=== PATIENT | male | born 1955 | race Caucasian/White ===

== ENCOUNTER 2019-05-24 00:34 | Inpatient (IN) | payer BC, SELFPAY ==
[2019-05-24 01:05] LABS: Mean Corpuscular Volume 95.5 fL (78.0-98.0)
[2019-05-24 01:06] LABS: INR-International Normal Ratio 1.2; PTT 26.2 SEC (22.9-36.1); Prothrombin Time 15.6 SEC (12.0-14.7)
[2019-05-24 01:15] LABS: Band 14 % (5-11); Hemoglobin 13.4 g/dL (14.0-18.0); Lymphocytes 5 % (21-51); MDiff Complete? YES; Mean Corpuscular HGB CONC 35.1 g/dL (32.0-36.0); Mean Corpuscular Hemoglobin 33.5 pg (27.0-31.0); Mean Platelet Volume 7.2 fL (7.4-10.4); Monocytes 4 % (0-10); Neutrophil 76 % (42-75); Platelet Count 205 thou/uL (130-400); Platelet Morphology Comment Appears Adequate; RBC Distribution Width 11.3 % (11.5-14.5); Red Blood Cell (RBC) Count 4.01 mill/uL (4.70-6.10)
[2019-05-24 01:19] LABS: ALT (SGPT) 44 U/L (8-55); AST (SGOT) 49 U/L (5-34); Albumin 3.7 g/dL (3.4-4.8); Alcohol 239 mg/dL (Less than 10); Alkaline Phosphatase 61 U/L (40-150); Anion Gap 14 mmol/L (10-20); BUN (Urea Nitrogen) 15 mg/dL (8.4-25.7); Bilirubin, Total 0.3 mg/dL (0.2-1.2); Calc. Creatinine Clearance 0 mL/min (70-130); Calcium 8.1 mg/dL (7.8-10.44); Carbon Dioxide 21 mmol/L (23-31); Chloride 105 mmol/L (98-107); Estimated GFR-MDRD Greater than 90; Globulin 2.3 g/dL (2.4-3.5); Glucose 151 mg/dL (80-115); Potassium 3.9 mmol/L (3.5-5.1); Sodium 136 mmol/L (136-145)
[2019-05-24] MEDS ORDERED: Dextrose 5% in Water 1,000 ML IV PRN (01:28)
[2019-05-24] MEDS ORDERED: Dextrose 50% Abboject 50 ML SYRINGE SLOW IVP PRN (01:28)
[2019-05-24] MEDS ORDERED: HumaLOG 300 UNITS/3 ML VIAL SC PRN (01:28)
[2019-05-24] MEDS ORDERED: Promethazine HCl 25 MG/ML VIAL IM PRN (01:32)
[2019-05-24] MEDS ORDERED: Ondansetron PF 4 MG/2 ML Vial IVP PRN (01:32)
[2019-05-24] MEDS ORDERED: diphenhydrAMINE 50 MG/ML VIAL IM PRN (01:32)
[2019-05-24] MEDS ORDERED: Naloxone HCl 0.4 mg/ml Vial IV PRN (01:32)
[2019-05-24] MEDS ORDERED: diphenhydrAMINE 50 MG/ML VIAL IVP PRN (01:32)
[2019-05-24] MEDS ORDERED: HYDROmorphone 10 mg/100 ml CADD IVPB PRN (01:32)
[2019-05-24] MEDS ORDERED: diphenhydrAMINE 25 MG CAP PO PRN (01:32)
[2019-05-24] MEDS ORDERED: Communication Order-Pharmacy FS SCH (01:45)
--- NOTE | 2019-05-24 01:55 | RAD ---
EXAM: Retrograde urethrogram HISTORY: Pelvic fracture with blood at the urethral meatus COMPARISON: Pelvic CT 05/24/2019 FINDINGS: Sterile contrast was instilled into the patient's penis. There is a small area of leakage o f the contrast from the membranous urethra. IMPRESSION: Small urethral injury of the membranous urethra.
[2019-05-24] MEDS ORDERED: Midazolam HCl 2 mg/2 ml Vial ONE (02:55)
[2019-05-24] MEDS ORDERED: Fentanyl 100 MCG/2 ML VIAL ONE (02:55)
[2019-05-24 03:06] LABS: #Eosinphils 0.1 thou/uL (0.0-0.7); #Lymphocytes 1.6 thou/uL (1.20-3.40); #Monocytes 1.7 thou/uL (0.11-0.59); #Neutrophils 17.8 thou/uL (1.40-6.50); %Basophils 0.2 % (0.0-1.0); %Eosinophils 0.3 % (0.0-10.0); %Lymphocytes 7.5 % (21.0-51.0); %Monocytes 7.8 % (0.0-10.0); %Neutrophils 84.3 % (42.0-75.0); Hemoglobin 12.8 g/dL (14.0-18.0); Mean Corpuscular HGB CONC 35.9 g/dL (32.0-36.0); Mean Corpuscular Hemoglobin 33.9 pg (27.0-31.0); Mean Corpuscular Volume 94.4 fL (78.0-98.0); Mean Platelet Volume 7.6 fL (7.4-10.4); Platelet Count 120 thou/uL (130-400); RBC Distribution Width 11.4 % (11.5-14.5); Red Blood Cell (RBC) Count 3.77 mill/uL (4.70-6.10); White Blood Cell (WBC) Count 21.2 thou/uL (4.8-10.8)
[2019-05-24 03:06] LABS: Actual Bicarbonate (HCO3a) 18.8 mEq/L (22-28); Analyzer IN Cardio ER; Base Excess (BEa) -9.6 mEq/L (-2.0 to +3.0); CO2 Tension 51.5 mmHg (35.0-45.0); Calcium, Ionized 1.11 mmol/L (1.12-1.30); Carboxyhemoglobin (COHb) 0.1 gm% (0.0-3.0); Hemoglobin (Hb) 13.1 g/dL (14.0-18.0); O2 Tension (PaO2) 324.4 mmHg (> 80.0); Potassium - ABG Lab 4.19 mmol/L (3.70-5.30)
[2019-05-24 03:13] LABS: ALV-art Gradient 324.225 (0-20); Puncture Site LRA; pH, Arterial 7.18 (7.35-7.45)
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
[2019-05-24 03:50] LABS: Bacteria/HPF None Seen HPF (None Seen); Bilirubin Negative (Negative); Blood, Urine 1+ (Negative); Clarity Clear (Clear); Glucose, Urine (Dipstick) Normal (Negative); Leukocyte Negative Leu/uL (Negative); Nitrite Negative (Negative); Protein, Urine (Dipstick) Negative (Neg-Trace); Squamous Epithelial 0-3 HPF (0-3); Urobilinogen Normal mg/dL (Less than 2); WBC/HPF 0-3 HPF (0-3)
[2019-05-24] MEDS: Sodium Chloride 0.9% 1,000 ML IV SCH ×3 (04:15→20:59)
[2019-05-24 04:18] VITALS: BMI 33.9
[2019-05-24 05:15] LABS: #Lymphocytes 0.8 thou/uL (1.20-3.40); #Monocytes 0.9 thou/uL (0.11-0.59); #Neutrophils 11.7 thou/uL (1.40-6.50); %Eosinophils 0.2 % (0.0-10.0); %Lymphocytes 5.7 % (21.0-51.0); %Monocytes 6.7 % (0.0-10.0); %Neutrophils 87.4 % (42.0-75.0); Hemoglobin 12.6 g/dL (14.0-18.0); Mean Corpuscular HGB CONC 35.4 g/dL (32.0-36.0); Mean Corpuscular Hemoglobin 33.8 pg (27.0-31.0); Mean Corpuscular Volume 95.4 fL (78.0-98.0); Mean Platelet Volume 7.2 fL (7.4-10.4); Platelet Count 166 thou/uL (130-400); RBC Distribution Width 11.2 % (11.5-14.5); Red Blood Cell (RBC) Count 3.73 mill/uL (4.70-6.10); White Blood Cell (WBC) Count 13.4 thou/uL (4.8-10.8)
[2019-05-24 05:25] LABS: INR-International Normal Ratio 1.2; PTT 25.9 SEC (22.9-36.1); Prothrombin Time 15.2 SEC (12.0-14.7)
[2019-05-24 05:31] LABS: Lactic Acid 3.9 mmol/L (0.5-2.2)
[2019-05-24 05:34] LABS: Anion Gap 15 mmol/L (10-20); BUN (Urea Nitrogen) 16 mg/dL (8.4-25.7); Calc. Creatinine Clearance 128 mL/min (70-130); Calcium 8.2 mg/dL (7.8-10.44); Carbon Dioxide 21 mmol/L (23-31); Chloride 104 mmol/L (98-107); Estimated GFR-MDRD Greater than 90; Glucose 136 mg/dL (80-115); Magnesium 1.8 mg/dL (1.6-2.6); Phosphorus 4.2 mg/dL (2.3-4.7); Sodium 135 mmol/L (136-145)
--- NOTE | 2019-05-24 07:53 | RAD ---
EXAM: XR Humerus Lt 2 View STANDARD PROVIDED CLINICAL HISTORY: Pain FINDINGS: There is no evidence for fracture or other acute osseous abnormality. Alignment appears anatomic. Justine nt spaces appear preserved. IMPRESSION: No evidence for an acute osseous abnormality. If there is persistent clinical concern, conservative m anagement and follow-up imaging advised.
--- NOTE | 2019-05-24 07:54 | RAD ---
EXAM: XR Forearm Lt 2 View STANDARD PROVIDED CLINICAL HISTORY: Pain FINDINGS: There is no evidence for fracture or other acute osseous abnormality. Alignment appears anatomic. Justine nt spaces appear preserved. IMPRESSION: No evidence for an acute osseous abnormality. If there is persistent clinical concern, conservative m anagement and follow-up imaging advised.
--- NOTE | 2019-05-24 07:56 | RAD ---
EXAM: XR Pelvis AP STANDARD PROVIDED CLINICAL HISTORY: Pain status post injury COMPARISON: None FINDINGS: Displaced fractures of the left pubic body, left superior pubic ramus, left inferior pubic ramus and midline nondisplaced sacral fracture. No additional fracture is evident. Please correlate with subsequently performed CT examination. IMPRESSION: As above.
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
[2019-05-24] MEDS ORDERED: ISOVUE-370 76%-LOCM 1 ML ONE (10:32)
[2019-05-24] MEDS ORDERED: Iopamidol 300 61% 100 ML VIAL FS ONE (10:40)
[2019-05-24] MEDS ORDERED: traMADol HCl 50 MG TAB PO PRN (11:56)
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
[2019-05-24] MEDS: Acetaminophen 500 MG TAB PO SCH ×2 (13:56→17:27)
[2019-05-24] MEDS: traMADol HCl 50 MG TAB PO PRN (14:27)
[2019-05-24] MEDS: Gabapentin 300 MG CAP PO SCH ×2 (14:27→20:59)
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
[2019-05-24] MEDS ORDERED: Atenolol 50 MG TAB PO SCH (17:15)
[2019-05-24] MEDS: Enoxaparin Sodium 40 MG/0.4 ML SYRINGE SC SCH (20:59)
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
[2019-05-25] MEDS: traMADol HCl 50 MG TAB PO PRN ×3 (00:41→18:24)
[2019-05-25] MEDS: Acetaminophen 500 MG TAB PO SCH ×4 (00:41→18:24)
[2019-05-25] MEDS: Sodium Chloride 0.9% 1,000 ML IV SCH ×2 (05:15→17:35)
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
[2019-05-25] MEDS: Gabapentin 300 MG CAP PO SCH ×3 (08:39→21:14)
[2019-05-25] MEDS: Enoxaparin Sodium 40 MG/0.4 ML SYRINGE SC SCH ×2 (08:39→21:14)
[2019-05-25] MEDS: Atenolol 50 MG TAB PO SCH (08:44)
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
[2019-05-25] MEDS: Ibuprofen 600 MG TAB PO PRN ×2 (13:10→21:14)
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
[2019-05-26] MEDS: traMADol HCl 50 MG TAB PO PRN ×2 (00:24→06:37)
[2019-05-26] MEDS: Acetaminophen 500 MG TAB PO SCH ×4 (00:24→18:20)
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
[2019-05-26 06:13] LABS: #Eosinphils 0.3 thou/uL (0.0-0.7); #Monocytes 0.6 thou/uL (0.11-0.59); #Neutrophils 4.1 thou/uL (1.40-6.50); %Basophils 0.8 % (0.0-1.0); %Eosinophils 4.3 % (0.0-10.0); %Lymphocytes 16.4 % (21.0-51.0); %Monocytes 10.6 % (0.0-10.0); %Neutrophils 67.8 % (42.0-75.0); Hemoglobin 9.2 g/dL (14.0-18.0); Mean Corpuscular Hemoglobin 32.9 pg (27.0-31.0); Mean Corpuscular Volume 96.8 fL (78.0-98.0); Mean Platelet Volume 7.5 fL (7.4-10.4); Platelet Count 113 thou/uL (130-400); RBC Distribution Width 11.3 % (11.5-14.5); Red Blood Cell (RBC) Count 2.78 mill/uL (4.70-6.10)
[2019-05-26 06:26] LABS: Lactic Acid 1.1 mmol/L (0.5-2.2)
[2019-05-26 06:36] LABS: Anion Gap 9 mmol/L (10-20); BUN (Urea Nitrogen) 13 mg/dL (8.4-25.7); Calc. Creatinine Clearance 162 mL/min (70-130); Calcium 8.4 mg/dL (7.8-10.44); Carbon Dioxide 27 mmol/L (23-31); Chloride 103 mmol/L (98-107); Estimated GFR-MDRD Greater than 90; Glucose 106 mg/dL (80-115); Magnesium 2.1 mg/dL (1.6-2.6); Phosphorus 2.6 mg/dL (2.3-4.7); Potassium 3.9 mmol/L (3.5-5.1); Sodium 135 mmol/L (136-145)
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
--- NOTE | 2019-05-26 08:59 | RAD ---
Frontal radiograph pelvis: 05/26/2019 COMPARISON: 05/24/2019 HISTORY: Pelvic fractures FINDINGS: Catheter tubing overlies the midline pelvis. Again noted are fracture deformities involving the midline sacrum, the left acetabulum superiorly/medially, the left pubic body, as well as the left inferior and superior pubic ramus. No new fracture identified. When compared to the 05/24/2019 examination, inferior displacement of the l eft superior and inferior pubic rami fractures may have slightly worsened although this apparent change may be on the basis of patient positioning. IMPRESSION: Multiple pelvic fractures as detailed above.
[2019-05-26] MEDS: Atenolol 50 MG TAB PO SCH (09:37)
[2019-05-26] MEDS: Senokot S 8.6-50 MG TAB PO SCH ×2 (09:38→20:29)
[2019-05-26] MEDS: Enoxaparin Sodium 40 MG/0.4 ML SYRINGE SC SCH ×2 (09:38→20:29)
[2019-05-26] MEDS: Gabapentin 300 MG CAP PO SCH ×3 (09:38→20:29)
[2019-05-26] MEDS: Polyethylene Glycol 3350 17 GM Packet PO SCH (09:38)
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
[2019-05-26] MEDS: Oxazepam 10 MG CAP PO SCH ×2 (14:46→20:29)
[2019-05-27] MEDS: Acetaminophen 500 MG TAB PO SCH ×5 (00:15→23:39)
[2019-05-27] MEDS: Ibuprofen 600 MG TAB PO PRN (00:17)
[2019-05-27] MEDS: traMADol HCl 50 MG TAB PO PRN (00:17)
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
[2019-05-27] MEDS: Oxazepam 10 MG CAP PO SCH ×3 (05:20→22:18)
[2019-05-27 06:50] LABS: #Eosinphils 0.2 thou/uL (0.0-0.7); #Monocytes 0.6 thou/uL (0.11-0.59); #Neutrophils 3.8 thou/uL (1.40-6.50); %Basophils 0.8 % (0.0-1.0); %Eosinophils 4.1 % (0.0-10.0); %Lymphocytes 17.7 % (21.0-51.0); %Monocytes 10.8 % (0.0-10.0); %Neutrophils 66.6 % (42.0-75.0); Hemoglobin 9.1 g/dL (14.0-18.0); Mean Corpuscular HGB CONC 35.9 g/dL (32.0-36.0); Mean Corpuscular Hemoglobin 34.4 pg (27.0-31.0); Mean Corpuscular Volume 95.8 fL (78.0-98.0); Mean Platelet Volume 7.5 fL (7.4-10.4); Platelet Count 145 thou/uL (130-400); RBC Distribution Width 11.4 % (11.5-14.5); Red Blood Cell (RBC) Count 2.63 mill/uL (4.70-6.10); White Blood Cell (WBC) Count 5.7 thou/uL (4.8-10.8)
[2019-05-27] MEDS ORDERED: Bisacodyl 10 MG SUPP PR SCH (07:45)
[2019-05-27] MEDS ORDERED: Enoxaparin Sodium 40 MG/0.4 ML SYRINGE SC SCH (09:00)
[2019-05-27] MEDS: Atenolol 50 MG TAB PO SCH (09:50)
[2019-05-27] MEDS: Enoxaparin Sodium 30 MG/0.3 ML SYRINGE SC SCH ×2 (09:50→20:39)
[2019-05-27] MEDS: Senokot S 8.6-50 MG TAB PO SCH ×2 (09:50→20:39)
[2019-05-27] MEDS: Folic Acid 1 MG TAB PO SCH (09:50)
[2019-05-27] MEDS: Thiamine 100 MG TAB PO SCH (09:50)
[2019-05-27] MEDS: Gabapentin 300 MG CAP PO SCH ×3 (09:51→20:39)
[2019-05-27] MEDS: Polyethylene Glycol 3350 17 GM Packet PO SCH (09:52)
[2019-05-27] MEDS: Bisacodyl 10 MG SUPP PR SCH (09:52)
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
[2019-05-27] MEDS: Ascorbic Acid 500 mg Chewable Tablet PO SCH (16:00)
[2019-05-27] MEDS: Ferrous Sulfate 325 MG TAB PO SCH (16:00)
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
[2019-05-28] MEDS: traMADol HCl 50 MG TAB PO PRN ×3 (04:20→17:09)
[2019-05-28] MEDS: Acetaminophen 500 MG TAB PO SCH ×4 (05:34→23:39)
[2019-05-28] MEDS: Oxazepam 10 MG CAP PO SCH ×3 (05:35→22:46)
[2019-05-28] MEDS: Ascorbic Acid 500 mg Chewable Tablet PO SCH ×2 (06:26→17:09)
[2019-05-28] MEDS: Ferrous Sulfate 325 MG TAB PO SCH ×2 (06:27→17:09)
[2019-05-28] MEDS: Atenolol 50 MG TAB PO SCH (08:20)
[2019-05-28] MEDS: Senokot S 8.6-50 MG TAB PO SCH ×2 (08:20→20:20)
[2019-05-28] MEDS: Thiamine 100 MG TAB PO SCH (08:20)
[2019-05-28] MEDS: Polyethylene Glycol 3350 17 GM Packet PO SCH (08:20)
[2019-05-28] MEDS: Gabapentin 300 MG CAP PO SCH ×3 (08:20→20:20)
[2019-05-28] MEDS: Folic Acid 1 MG TAB PO SCH (08:20)
[2019-05-28] MEDS: Bisacodyl 10 MG SUPP PR SCH (08:20)
[2019-05-28] MEDS: Enoxaparin Sodium 30 MG/0.3 ML SYRINGE SC SCH ×2 (08:20→20:21)
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
[2019-05-28] MEDS: Ibuprofen 600 MG TAB PO PRN (14:26)
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
[2019-05-29] MEDS ORDERED: Clopidogrel Bisulfate 75 MG TAB ONE (04:58)
[2019-05-29] MEDS: Acetaminophen 500 MG TAB PO SCH ×3 (05:06→17:13)
[2019-05-29] MEDS: Oxazepam 10 MG CAP PO SCH ×3 (05:07→22:08)
[2019-05-29] MEDS: Ascorbic Acid 500 mg Chewable Tablet PO SCH ×2 (06:32→17:13)
[2019-05-29] MEDS: Ferrous Sulfate 325 MG TAB PO SCH ×2 (06:32→17:13)
[2019-05-29] MEDS: Folic Acid 1 MG TAB PO SCH (08:18)
[2019-05-29] MEDS: Atenolol 50 MG TAB PO SCH (08:18)
[2019-05-29] MEDS: Gabapentin 300 MG CAP PO SCH ×3 (08:18→20:51)
[2019-05-29] MEDS: Thiamine 100 MG TAB PO SCH (08:18)
[2019-05-29] MEDS: Enoxaparin Sodium 30 MG/0.3 ML SYRINGE SC SCH ×2 (08:18→20:50)
[2019-05-29] MEDS: Senokot S 8.6-50 MG TAB PO SCH ×2 (08:19→20:51)
[2019-05-29] MEDS: Bisacodyl 10 MG SUPP PR SCH (08:19)
[2019-05-29] MEDS: traMADol HCl 50 MG TAB PO PRN ×2 (08:19→14:15)
[2019-05-29] MEDS: Polyethylene Glycol 3350 17 GM Packet PO SCH (08:19)
[2019-05-29] MEDS: Ibuprofen 600 MG TAB PO PRN (11:19)
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
[2019-05-29] MEDS: Bacitracin Zinc Ointment 30 gm TUBE TOP SCH (20:50)
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
[2019-05-30] MEDS: Acetaminophen 500 MG TAB PO SCH ×4 (00:44→17:58)
[2019-05-30] MEDS: Oxazepam 10 MG CAP PO SCH ×2 (05:15→14:52)
[2019-05-30] MEDS: Ascorbic Acid 500 mg Chewable Tablet PO SCH ×2 (06:30→17:58)
[2019-05-30] MEDS: Ferrous Sulfate 325 MG TAB PO SCH ×2 (06:30→18:04)
[2019-05-30] MEDS: Enoxaparin Sodium 30 MG/0.3 ML SYRINGE SC SCH (09:07)
[2019-05-30] MEDS: Thiamine 100 MG TAB PO SCH (09:08)
[2019-05-30] MEDS: Folic Acid 1 MG TAB PO SCH (09:08)
[2019-05-30] MEDS: Gabapentin 300 MG CAP PO SCH ×2 (09:08→14:52)
[2019-05-30] MEDS: Atenolol 50 MG TAB PO SCH (09:08)
[2019-05-30] MEDS: Senokot S 8.6-50 MG TAB PO SCH (09:11)
[2019-05-30] MEDS: Bacitracin Zinc Ointment 30 gm TUBE TOP SCH (09:14)
[2019-05-30] MEDS: Bisacodyl 10 MG SUPP PR SCH (09:14)
[2019-05-30] MEDS: Polyethylene Glycol 3350 17 GM Packet PO SCH (09:14)
[2019-05-30] MEDS: traMADol HCl 50 MG TAB PO PRN ×2 (09:18→17:58)
[2019-05-30 15:52] VITALS: BP 142/73; TEMP 97.8
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
== END 2019-05-30 18:23 | DRG 963 ==
LOC: ERS 00:35 → CCU 03:43 → SURG B 10:55
PROVIDERS: ADMIT Surgery; ATTEND Surgery
PROC: BT0B1ZZ Plain Radiography of Bladder and Urethra using Low Osmolar Contrast (ICD-10-PCS; principal; 2019-05-24)
DX: S32.82XA Multiple fractures of pelvis without disruption of pelvic ring, initial encounter for closed fracture (principal); J96.01 Acute respiratory failure with hypoxia; S37.30XA Unspecified injury of urethra, initial encounter; D62 Acute posthemorrhagic anemia; S09.90XA Unspecified injury of head, initial encounter; Y93.01 Activity, walking, marching and hiking; R40.2411 Glasgow coma scale score 13-15, in the field [EMT or ambulance]; I10 Essential (primary) hypertension; V09.9XXA Pedestrian injured in unspecified transport accident, initial encounter; Y92.009 Unspecified place in unspecified non-institutional (private) residence as the place of occurrence of the external cause; F10.20 Alcohol dependence, uncomplicated
CPT/HCPCS: 36415; 36416; 36430; 51610; 51702; 70450; 70486; 71260; 72125; 72170; 74177; 74450; 80048; 80053; 80307; 81003; 81015; 82533; 82805; 83605; 83735; 84100; 85025; 85610; 85730; 86850; 86900; 86901; 94640; 94760; 96365; 96375; 99292; G0390; J1650; J2250; J3010; J7620; P9045; Q0163; Q9966; Q9967

== ENCOUNTER 2019-06-25 09:42 | Day surgery (SDC) | payer BC ==
[2019-06-24 16:36] VITALS: BMI 33.0
[2019-06-25] MEDS ORDERED: Midazolam HCl 2 mg/2 ml Vial ONE (11:11)
[2019-06-25] MEDS ORDERED: Fentanyl 100 MCG/2 ML VIAL ONE ×2 (11:11→11:54)
[2019-06-25] MEDS ORDERED: Bupivacaine PF 0.5% 30 ML VIAL ONE (11:44)
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
--- NOTE | 2019-06-26 23:23 | EKG ---
Test Reason : PREOP Blood Pressure : / mmHG Vent. Rate : 055 BPM Atrial Rate : 055 BPM P-R Int : 246 ms QRS Dur : 096 ms QT Int : 406 ms P-R-T Axes : 023 -04 018 degrees QTc Int : 388 ms Sinus bradycardia with 1st degree A-V block Otherwise normal ECG No previous ECGs available Confirmed by Norma BANUELOS ([id number]) on 06/26/2019 11:22:54 PM Referred By: KEVIN Confirmed By:Norma BANUELOS
== END 2019-06-25 16:00 | disposition home or self-care (01) ==
LOC: SDC 09:42
PROVIDERS: ATTEND Orthopaedic Surgery
PROC: 0MU407Z Supplement Left Elbow Bursa and Ligament with Autologous Tissue Substitute, Open Approach (ICD-10-PCS; principal; 2019-06-25)
DX: S53.432A Radial collateral ligament sprain of left elbow, initial encounter (principal); S53.442A Ulnar collateral ligament sprain of left elbow, initial encounter; I10 Essential (primary) hypertension; V09.9XXA Pedestrian injured in unspecified transport accident, initial encounter
CPT/HCPCS: 93005; 93010; C1713; J0690; J2250; J3010; S0020